=== PATIENT | female | born 1955 | race Caucasian/White ===

== ENCOUNTER 2022-04-30 09:18 | Outpatient (CLI) | payer MEDICARE, SELFPAY ==
[2022-04-30 12:19] LABS: Cholesterol* 286 mg/dL (90-199)
[2022-04-30 12:20] LABS: Glucose* 92 mg/dL (60-115); Triglycerides* 115 mg/dL (40-149)
[2022-04-30 12:21] LABS: HDL Cholesterol* 78 mg/dL (>=50); LDL Cholesterol Calculated 185 mg/dL (<100)
== END 2022-04-30 09:19 | disposition home or self-care (01) ==
LOC: NFLDREF 09:19
PROVIDERS: PCP Family Medicine; Visit Provider Obstetrics & Gynecology
DX: Z01.419 Encounter for gynecological examination (general) (routine) without abnormal findings (principal); E78.5 Hyperlipidemia, unspecified; Z13.1 Encounter for screening for diabetes mellitus
CPT/HCPCS: 80061; 82947

== ENCOUNTER 2022-06-19 18:58 | Emergency (ER) | payer MEDICARE, SELFPAY ==
[2022-06-19 19:25] VITALS: BP 128/84; PULSE 76; RESP 18; TEMP 36.8; O2SAT 95; BMI 26.6
--- NOTE | 2022-06-19 21:33 | ED.WOUNDLAC ---
HPI - Wound/Laceration General Time Seen by Provider: 21:33 Date Seen: 06/19/22 Chief Complaint: Laceration/Wound Stated Complaint: Fall Head Lac Time Seen by Provider: 06/19/22 21:33 Source: patient, RN notes reviewed and old records reviewed Mode of arrival: ambulatory Limitations: no limitations History of Present Illness HPI narrative: Mary is a very pleasant 67-year-old female with a history of SVT, seizure who comes to the emergency room with a friend after sustaining a head laceration from a fall at home. Mary states that she was barefoot going bounce carpeted steps that also had a rug over it when she fell. She was carrying close to the wash. She notes that her feet simply slipped and she fell back hitting the back of her head on the step. She was very surprised today when she noticed blood on her fingers. Her friend came over and she had a laceration that was bleeding quite well when she 1st arrived but has now calmed down. She did not sustain any loss of consciousness. She does note that her neck is becoming stiff and hurts on the right side. She denies any numbness or tingling of the extremities or any weakness. She did not have loss of bowel or bladder control. She immediately got up and was able to do that on her own. Since that time patient denies visual changes, nausea, vomiting, numbness or tingling. Related Data Previous Rx's Medication Instructions Recorded estradiol 0.05 mg/24 hr semiweekly 1 patch transdermal 2XW #24 ea 05/30/22 transdermal patch Allergies Allergy/AdvReac Type Severity Reaction Status Date / Time No Known Drug Allergies Allergy Verified 04/30/22 08:42 Review of Systems Status of ROS: Reports: 10 or more systems reviewed and unremarkable except as noted in History and below Const: Denies: fever or chills Eyes: Denies: change in vision or blurry vision ENMT: Reports: neck pain; Denies: throat pain Cardio: Denies: chest pain, swelling of feet/ankles, lightheadedness or shortness of breath with exertion Resp: Denies: shortness of breath or cough GI: Denies: abdominal pain Musculo: Reports: neck pain Neuro: Denies: headache or slurred speech [facility] Medical History Basal cell carcinoma (BCC) (12/12/15) Dyslipidemia History of lipoma (2018) History of osteopenia History of seizures History of supraventricular tachycardia (2002) Surgical History History of arthroscopic surgery of shoulder (09/20/20) History of brain surgery (2008) History of cardiac radiofrequency ablation (RFA) (2002) History of hysterectomy with bilateral oophorectomy (2006) History of lumbar discectomy (1999) History of varicose vein ligation (2008) Status post arthroscopy of right shoulder (04/26/20) Family History Father Coronary artery disease, Onset Age: 60 Colon cancer, Onset Age: 50 Parkinson's disease High cholesterol Mother Breast cancer, Onset Age: 76 Brother Parkinson's disease Social History Narrative: Nonsmoker. No EtOH. Exercises daily with walking 3 miles. . Retired from [email or web address]. No children. Has a dog, Michael. Highest level of school completed/degree received: Associate degree: occupational, technical, vocational program Smoking Status: Never smoker How often do you have a drink containing alcohol: never AUDIT-C Alcohol total score: 0 Non-prescribed substance use: denies use Are you now , , , , never or living with a partner: Social isolation score (0-1 are the most socially isolated patients): 0 Little interest or pleasure in doing things: not at all Feeling down, depressed, or hopeless: not at all Do you think of yourself as: straight/heterosexual Gender Identity: female Are you currently sexually active: No Exam Narrative: Exam Narrative: Mary is alert and oriented. GCS of 15. EOM is full and pupils are equal round and reactive. Head shows dried blood and losing from a laceration. I am only able to see approximately 1/4 inch. Hair is dry and matted with blood around it.. I am unable to see the full extent of the wound and at this time given the fact that it is hemostatic and I am not exposing this area. No step-offs palpated. Patient has no midline cervical tenderness. Patient has some mild discomfort with active range of motion on the right paracervical musculature. EOM is full pupils equal round. Face is symmetrical. Mentation normal. Neck is otherwise supple without lymphadenopathy. Heart with regular rate and rhythm and lungs are clear. Palpation down thoracic spine lumbar spine without discomfort. Upper and lower extremity strength and motor fully intact. Const: Vital Signs, click to edit/add: Vital Signs - 24 hr 06/19/22 19:25 06/19/22 22:00 06/19/22 23:20 Temperature 98.2 F 98.2 F Pulse Rate [Pulse Oximeter] 76 72 75 Respiratory Rate 18 16 16 Blood Pressure [Ri ght Upper Arm] 128/84 118/79 120/74 Pulse Oximetry 95 97 97 Oxygen Delivery Me thod Room Air Room Air Room Air Documenting provider has reviewed patient's vital signs: yes Course Course Hospital Course: Given patient's age as well as laceration from carpeted stairs I do feel that this was quite a below. As she is over the age of [address] of head and neck as her neck is now uncomfortable on the right. We will check her tetanus status and when she returns clean this wound. I will plan on stapling this wound together. Reevaluation(s) Reevaluation #1: Patient's head CT does not show any acute findings and cervical spine is reassuring. We were able to wash patient's hair to reveal a hot 2 cm superficial laceration compromising epidermis partially compromising dermis. At this time it is hemostatic. One can pull away the edges somewhat. After discussion with patient I did place 2 ana laura with good wound approximation. Patient tolerated procedure well. Vital Signs Vital signs: Initial Vital Signs Temperature 98.2 F 06/19/22 19:25 Temperature Source Temporal Artery Scan 06/19/22 19:25 Pulse Rate 76 06/19/22 19:25 Respiratory Rate 18 06/19/22 19:25 Blood Pressure 128/84 06/19/22 19:25 Blood Pressure Mean 98 06/19/22 19:25 Blood Pressure Position Sitting 06/19/22 19:25 Pulse Oximetry 95 06/19/22 19:25 Oxygen Delivery Method 06/19/22 19:25 Vital Signs Temperature 98.2 F 06/19/22 19:25 Pulse Rate 76 06/19/22 19:25 Respiratory Rate 18 06/19/22 19:25 Blood Pressure 128/84 06/19/22 19:25 Pulse Oximetry 95 06/19/22 19:25 Oxygen Delivery Method 06/19/22 19:25 Temperature 98.2 F 06/19/22 23:20 Pulse Rate 75 06/19/22 23:20 Respiratory Rate 16 06/19/22 23:20 Blood Pressure 120/74 06/19/22 23:20 Pulse Oximetry 97 06/19/22 23:20 Oxygen Delivery Method 06/19/22 23:20 MDM - Wound/Laceration MDM Narrative Medical decision making narrative: 1. Head laceration-head laceration cleansed and 2 ana laura placed. Staple removal out in [address] without evidence of acute injury. No LOC noted. Tylenol as needed for discomfort. 2. Cervical strain-patient has right-sided neck discomfort that has gradually evolved. No midline tenderness. CT negative. Tylenol as needed for discomfort 3. Disposition.-home with friend. Tetanus in 2018. Return for vomiting, dizziness, onset of new symptoms and as needed. Medical Records Attestation: I reviewed the patient's medical records. Imaging Data CT scan - head: Attestation: I have reviewed the pertinent imaging results. Radiologist's impression: There is a mature left anterior and mid parietal craniotomy. There is prominent encephalomalacia of the inferior medial frontoparietal brain, associated with mild ex vacuo dilatation of the right frontal horn. Two tiny calcifications are seen in the medial aspect of the region of encephalomalacia. This may be from an old contusion. I do not see any clips or coils to suggest and embolization of an aneurysm, but the findings could be the result of treatment of an aneurysm. Recommend correlation with the clinical history. Tiny bubbles of fatty material are seen in the subarachnoid space of the medial frontal lobes bilaterally adjacent to the anterior falx, and also overlying the body of the corpus callosum. This could be from previous surgery. There is no sign of acute injury to the brain, with no sign of mass lesion, mass effect, hemorrhage, or edema. There is moderate dilatation of ventricles and mild dilatation of the sulci representing moderate, age-appropriate central atrophy. The visualized portions of the orbits are normal in appearance. The visualized portions of the paranasal sinuses and mastoids are clear. The osseous structures are normal in their appearance with no sign of abnormality in the skull base or calvarium. IMPRESSION: No sign of acute injury to the brain. No sinus closed-head injury. Prominent encephalomalacia of the medial inferior left frontal lobe with mild ex vacuo dilatation of the left frontal horn, deep to a mature moderate-sized left mid-anterior parietal craniotomy. Moderate central atrophy, consistent with patient`s age. Cervical spine CT: Attestation: I have reviewed the pertinent imaging results. My impression: No noted cervical spine fractures Radiologist's impression: There is no sign of fracture or subluxation. The cervical vertebral bodies are normal in height and are in anatomic alignment. There is moderate C6-7 disc degenerative disease. There is mild diffuse disc bulging and posterior osteophytic ridging, not prominent enough to result in spinal stenosis. The rest of the intervertebral discs are normal in height. Moderate hypertrophic osteophyte formation is seen at C3-4 and C4-5. There is no sign of prevertebral soft tissue swelling. The airway structures are normal in appearance. The visualized skull base is normal in appearance. The visualized inferior brain is normal in appearance for the patient`s age. The apices of the lungs are clear. IMPRESSION: No sign of acute osseous injury to the cervical spine. Moderate C5-6 disc degenerative disease. Discharge Plan Discharge Clinical Impression: Laceration of head, Cervical strain Patient Disposition: Home, Self-Care Condition: Improved Additional Instructions: Stable removal in 7 days. You will likely notice some oozing from the wound. If you develop fever, vomiting, signs of infection, balance difficulties please return to the emergency room. Tylenol as needed for discomfort. You may shower tomorrow afternoon. Please do not soak wound such in a pool. Prescriptions: No Action estradiol 0.05 mg/24 hr patch semiweekly 1 patch transdermal 2XW Qty: 24 3RF Label Comments: TAKE 1 PATCH TD 2 TIMES A WEEK. Follow Up/Referrals: Mihir Pappas MD [Primary Care Provider] - Stand Alone Forms: Tail Info Instructions
--- NOTE | 2022-06-19 21:45 | CRLHL7_ITS ---
For Patients: As a result of the 21st Century Cures Act, medical imaging exams and procedure reports are released immediately into your electronic medical record. You may view this report before your referring provider. If you have questions, please contact your health care provider. INDICATION: Fall with laceration of the head and neck pain. COMPARISON: None available. TECHNIQUE: CT examination of the head was performed with 3 mm thick axial and 2 mm thick coronal and sagittal sections without intravenous contrast. Images were obtained from the vertex of the skull through the skull base, and I examined the images with the brain and bone windows. Please note that all CT scans at this facility use dose modulation, iterative reconstruction, and/or weight-based dosing when appropriate to reduce radiation dose to as low as reasonably achievable. FINDINGS: : There is a mature left anterior and mid parietal craniotomy. There is prominent encephalomalacia of the inferior medial frontoparietal brain, associated with mild ex vacuo dilatation of the right frontal horn. Two tiny calcifications are seen in the medial aspect of the region of encephalomalacia. This may be from an old contusion. I do not see any clips or coils to suggest and embolization of an aneurysm, but the findings could be the result of treatment of an aneurysm. Recommend correlation with the clinical history. Tiny bubbles of fatty material are seen in the subarachnoid space of the medial frontal lobes bilaterally adjacent to the anterior falx, and also overlying the body of the corpus callosum. This could be from previous surgery. There is no sign of acute injury to the brain, with no sign of mass lesion, mass effect, hemorrhage, or edema. There is moderate dilatation of ventricles and mild dilatation of the sulci representing moderate, age-appropriate central atrophy. The visualized portions of the orbits are normal in appearance. The visualized portions of the paranasal sinuses and mastoids are clear. The osseous structures are normal in their appearance with no sign of abnormality in the skull base or calvarium. IMPRESSION: No sign of acute injury to the brain. No sinus closed-head injury. Prominent encephalomalacia of the medial inferior left frontal lobe with mild ex vacuo dilatation of the left frontal horn, deep to a mature moderate-sized left mid-anterior parietal craniotomy. Moderate central atrophy, consistent with patient`s age. Please note that all CT scans at this facility use dose modulation, iterative reconstruction, and/or weight-based dosing when appropriate to reduce radiation dose to as low as reasonably achievable. Dictated by Loy Cao MD @ 06/19/2022 10:39:39 PM (Electronically Signed)
--- NOTE | 2022-06-19 21:45 | CRLHL7_ITS ---
For Patients: As a result of the Century Cures Act, medical imaging exams and procedure reports are released immediately into your electronic medical record. You may view this report before your referring provider. If you have questions, please contact your health care provider. INDICATION: Status post fall. Neck pain. COMPARISON: None available. TECHNIQUE: CT examination of the cervical spine is performed without contrast using spiral technique. 2 mm thick axial, sagittal and coronal reconstructions were made. Please note that all CT scans at this facility use dose modulation, iterative reconstruction, and/or weight-based dosing when appropriate to reduce radiation dose to as low as reasonably achievable. FINDINGS: : There is no sign of fracture or subluxation. The cervical vertebral bodies are normal in height and are in anatomic alignment. There is moderate C6-7 disc degenerative disease. There is mild diffuse disc bulging and posterior osteophytic ridging, not prominent enough to result in spinal stenosis. The rest of the intervertebral discs are normal in height. Moderate hypertrophic osteophyte formation is seen at C3-4 and C4-5. There is no sign of prevertebral soft tissue swelling. The airway structures are normal in appearance. The visualized skull base is normal in appearance. The visualized inferior brain is normal in appearance for the patient`s age. The apices of the lungs are clear. IMPRESSION: No sign of acute osseous injury to the cervical spine. Moderate C5-6 disc degenerative disease. Please note that all CT scans at this facility use dose modulation, iterative reconstruction, and/or weight-based dosing when appropriate to reduce radiation dose to as low as reasonably achievable. Dictated by Loy Cao MD @ 06/19/2022 10:45:23 PM (Electronically Signed)
[2022-06-19 22:00] VITALS: BP 118/79; PULSE 72; RESP 16; O2SAT 97
[2022-06-19 23:20] VITALS: BP 120/74; PULSE 75; RESP 16; TEMP 36.8; O2SAT 97
== END 2022-06-19 23:21 | disposition home or self-care (01) ==
PROVIDERS: Emergency Provider Family Medicine; PCP Family Medicine
DX: S01.91XA Laceration without foreign body of unspecified part of head, initial encounter (principal); S16.1XXA Strain of muscle, fascia and tendon at neck level, initial encounter; W10.9XXA Fall (on) (from) unspecified stairs and steps, initial encounter
CPT/HCPCS: 12001; 70450; 72125; 99283; 99284

== ENCOUNTER 2022-07-21 13:00 | Outpatient (CLI) | payer MEDICARE, SELFPAY ==
--- NOTE | 2022-07-21 13:20 | CRLHL7_ITS ---
For Patients: As a result of the Century Cures Act, medical imaging exams and procedure reports are released immediately into your electronic medical record. You may view this report before your referring provider. If you have questions, please contact your health care provider. BILATERAL SCREENING MAMMOGRAM WITH COMPUTER-AIDED DETECTION AND TOMOSYNTHESIS TECHNIQUE: CC and MLO views were obtained. These mammographic images have been obtained using full-field digital technique. These mammographic images were interpreted with the benefit of computer-aided detection. Breast Tomosynthesis was used in this interpretation. COMPARISON FILM: 03/02/20, 04/05/18, 09/16/13. FINDINGS: The breasts are heterogeneously dense, which may obscure small masses IMPRESSION: There is no radiographic evidence for malignancy. ASSESSMENT: BI-RADS Category 1: Negative RECOMMENDATION: Routine screening mammogram in 1 year. A lay language report of this examination will be provided to the patient. SHIVAM PATEL MD Diagnostic/Nuclear Medicine Radiologist [email or web address] COURTNEY/[email or web address] be/Dictated by: Shivam Patel MD @ 07/22/2022 8:20:00 AM (Electronically Signed)
== END 2022-07-21 13:01 | disposition home or self-care (01) ==
PROVIDERS: PCP Family Medicine; Visit Provider Obstetrics & Gynecology
DX: Z12.31 Encounter for screening mammogram for malignant neoplasm of breast (principal); R92.2 Inconclusive mammogram
CPT/HCPCS: 77063; 77067

== ENCOUNTER 2023-05-15 12:11 | Outpatient (CLI) | payer MEDICARE, SELFPAY | END 2023-05-15 12:12 | disposition home or self-care (01) | PROVIDERS: PCP Family Medicine; Visit Provider Obstetrics & Gynecology | DX: Z13.1 Encounter for screening for diabetes mellitus (principal); R79.89 Other specified abnormal findings of blood chemistry | CPT/HCPCS: 80061; 82947 ==

== ENCOUNTER 2024-05-31 10:10 | Outpatient (CLI) | payer MEDICARE, SELFPAY | END 2024-05-31 10:11 | disposition home or self-care (01) | PROVIDERS: PCP Family Medicine; Visit Provider Obstetrics & Gynecology | DX: E78.5 Hyperlipidemia, unspecified (principal); Z13.1 Encounter for screening for diabetes mellitus | CPT/HCPCS: 80061; 82947 ==